=== PATIENT | male | born 1970 | race African-American/Black ===

== ENCOUNTER 2016-08-14 08:03 | Day surgery (SDC) | payer OTHER ==
[~2016-08-14 08:03] MED LIST: Lactated Ringers 1,000 ML IV PRN
[2016-08-14] MEDS ORDERED: Propofol 200 MG/20 ML SDV ONE (09:58)
[2016-08-14] MEDS ORDERED: fentaNYL 100 MCG/2 ML SDV ONE (09:58)
[2016-08-14 12:20] VITALS: BP 139/84
--- NOTE | 2016-08-14 12:50 | OR ---
PREOPERATIVE DIAGNOSIS: Dyspepsia. POSTOPERATIVE DIAGNOSIS: Significant diffuse gastritis. PROCEDURE PROPOSED: Upper gastrointestinal panendoscopy with gastric biopsies. PROCEDURE DONE: Upper gastrointestinal panendoscopy with gastric biopsies. INDICATION: This is a 46-year-old, black person with significant dyspepsia symptoms. He is presently taking Protonix 20 mg daily for the last 3 to 4 weeks with some mild improvement of symptoms. It is felt that he should be gastroscoped to rule out significant pathology. TECHNIQUE: The patient was brought to the endoscopy suite, placed in left lateral decubitus position. He was sedated with propofol per DIE MAKER. The flexible video gastroscope was then passed transorally and under visualization advanced well into the duodenum. The duodenum and duodenum bulb was unremarkable. The antrum and body of the stomach revealed diffuse gastritis with patches of redness, some prominent rugal folds. Several biopsies were taken from the antrum, mainly to rule out H. pylori. The GE junction did not reveal any significant hiatal hernia. There was no evidence of any active reflux damage. The GE junction was well demarcated without signs of Schatzki's ring or stenosis, and the remainder of the esophagus was normal as the scope was then withdrawn. The patient tolerated the procedure well. IMPRESSION: Diffuse gastritis. PLAN: I am going to increase his Protonix to twice a day 20 mg in the morning, 20 mg in the evening for a couple of months. He needs to avoid caffeine, alcohol, ibuprofen, and follow up with his PCP as needed. SCM: 08/14/2016 11:11:58 MODL: 08/14/2016 12:39:27 /[id number]
--- NOTE | 2016-08-24 13:17 | LETTER ---
08/21/2016 RE: SARANYA WILD : 1970 Dear Saranya: The biopsies taken from your stomach confirmed a chronic gastritis with some swelling and inflammatory changes. You do not have the bacteria known as H pylori in your stomach. Therefore, you do not need any special treatment for that. I am hoping that things are improving for you on the medication you are on. If you continue to have problems, you should see your family physician. Respectfully,
== END 2016-08-14 12:25 | disposition home or self-care (01) ==
LOC: VM.SDS 08:03
PROVIDERS: ATTEND Surgery
DX: K29.60 Other gastritis without bleeding (principal)
CPT/HCPCS: 43239; J2704; J3010; J7120

== ENCOUNTER 2018-10-24 07:09 | Emergency (ER) | payer OTHER ==
[2018-10-24] MEDS ORDERED: Ondansetron 4 MG/2 ML SDV IVPUSH ONE ×2 (07:35→08:52)
[2018-10-24] MEDS ORDERED: Sodium Chloride 0.9% 10 ML Syringe FLUSH PRN (07:35)
[2018-10-24] MEDS ORDERED: Sodium Chloride 0.9% 1,000 ML IV SCH (07:45)
--- NOTE | 2018-10-24 07:48 | EDM.PDOC ---
ED HPI GENERAL MEDICAL PROBLEM - General Chief Complaint: Gastrointestinal Problem Stated Complaint: ACID REFLEX Time Seen by Provider: 10/24/18 07:35 Source of Information: Reports: Patient History Limitations: Reports: No Limitations - History of Present Illness INITIAL COMMENTS - FREE TEXT/NARRATIVE: Patient comes in with complaints of nausea and vomiting that started Wednesday night. He states he tries to drink water and vomits right after. He states Wednesday was the worst of it, but also states he keeps trying to drink large glasses of water, resulting in emesis. He states he is throwing up every 15 minutes. He has had 2 episodes so far while here. Denies fever, blood in vomit , denies recent prior illness or travel. No recent contact with ill person. He states he has chronic lower back pain. No diarrhea. Denies chest pain, sob , headache. Primary doctor is Dr. Javi Mcneal. Onset Date: 10/22/18 Duration: Getting Worse, Intermittent Associated Symptoms: Reports: Nausea/Vomiting - Related Data Allergies Allergy/AdvReac Type Severity Reaction Status Date / Time No Known Allergies Allergy Verified 10/24/18 07:27 Home Meds: Home Meds . [No Known Home Meds] 10/24/18 [History] Past Medical History HEENT History: Reports: None Cardiovascular History: Reports: None Respiratory History: Reports: None Gastrointestinal History: Reports: GERD Other Genitourinary History: DYSURIA Other Musculoskeletal History: PLANTAR FASCIITIS LEFT FOOT Neurological History: Reports: None Psychiatric History: Reports: None Endocrine/Metabolic History: Reports: None Other Hematologic History: ELEVATED BLOOD URIC ACID Immunologic History: Reports: None Oncologic (Cancer) History: Reports: None Dermatologic History: Reports: None - Past Surgical History GI Surgical History: Reports: EGD Neurological Surgical History: Reports: Laminectomy, Lumbar Spine Other Musculoskeletal Surgeries/Procedures:: S/P CERVICAL SPINAL FUSION C5-6 AND C6-T1. S/P LUMBAR FUSION. PREVIOUS BACK SURGERY (SPINA BIFIDA?). LOW BACK SURGERY Social & Family History - Tobacco Use Smoking Status *Q: Unknown Ever Smoked ED ROS GENERAL - Review of Systems Review Of Systems: See Below Constitutional: Reports: No Symptoms HEENT: Reports: No Symptoms Respiratory: Reports: No Symptoms Cardiovascular: Reports: No Symptoms Endocrine: Reports: No Symptoms GI/Abdominal: Reports: Abdominal Pain (mid epigastric), Nausea, Vomiting : Reports: No Symptoms Musculoskeletal: Reports: No Symptoms Skin: Reports: No Symptoms Neurological: Reports: No Symptoms Psychiatric: Reports: No Symptoms Hematologic/Lymphatic: Reports: No Symptoms Immunologic: Reports: No Symptoms ED EXAM, GI/ABD - Physical Exam Exam: See Below Exam Limited By: No Limitations General Appearance: Alert, WD/WN, Mild Distress Eyes: Bilateral: Normal Appearance, EOMI Ears: Normal TMs Nose: Normal Inspection, Normal Mucosa, No Blood Throat/Mouth: Normal Inspection, Normal Lips, Normal Teeth, Normal Gums, Normal Oropharynx, Normal Voice, No Airway Compromise Head: Atraumatic, Normocephalic Neck: Normal Inspection, Supple, Non-Tender, Full Range of Motion Respiratory/Chest: No Respiratory Distress, Lungs Clear, Normal Breath Sounds, No Accessory Muscle Use, Chest Non-Tender Cardiovascular: Normal Peripheral Pulses, Regular Rate, Rhythm, No Edema, No Gallop, No JVD, No Murmur, No Rub GI/Abdominal Exam: Normal Bowel Sounds, Soft, Non-Tender, No Organomegaly, No Distention, No Abnormal Bruit, No Mass, Pelvis Stable Extremities: Normal Inspection, Normal Range of Motion, Non-Tender, Normal Capillary Refill, No Pedal Edema Neurological: Alert, Oriented, CN II-XII Intact, Normal Cognition, Normal Gait, Normal Reflexes, No Motor/Sensory Deficits Psychiatric: Normal Affect, Normal Mood Skin Exam: Warm, Dry, Intact, Normal Color, No Rash Lymphatic: No Adenopathy Course - Vital Signs Last Recorded V/S: Last Vital Signs Temp 36.8 C 10/24/18 07:12 Pulse 108 H 10/24/18 07:12 Resp 18 10/24/18 07:12 BP 138/94 H 10/24/18 07:12 Pulse Ox 99 10/24/18 07:12 - Orders/Labs/Meds Orders: Active Orders 24 hr Category Date Time Status AMYLASE [CHEM] Stat Lab 10/24/18 07:42 Ordered CBC WITH AUTO DIFF [HEME] Stat Lab 10/24/18 07:42 Ordered COMPREHENSIVE METABOLIC PN,CMP [CHEM] Stat Lab 10/24/18 07:42 Ordered LACTIC ACID [CHEM] Stat Lab 10/24/18 07:42 Ordered LIPASE [CHEM] Stat Lab 10/24/18 07:42 Ordered MAGNESIUM [CHEM] Stat Lab 10/24/18 07:42 Ordered Sodium Chloride 0.9% [Normal Saline] 1,000 ml Med 10/24/18 07:45 Ordered IV ASDIRECTED Sodium Chloride 0.9% [Saline Flush] Med 10/24/18 07:35 Ordered 10 ml FLUSH ASDIRECTED PRN Saline Lock Insert [OM.PC] Routine Oth 10/24/18 07:35 Ordered Medication Orders Sodium Chloride (Normal Saline) 1,000 mls @ 999 mls/hr IV ASDIRECTED MARINA Sodium Chloride (Saline Flush) 10 ml FLUSH ASDIRECTED PRN PRN Reason: Keep Vein Open Meds: Medications Generic Name Dose Route Start Last Admin Trade Name Freq PRN Reason Stop Dose Admin Sodium Chloride 1,000 mls @ 999 mls/hr 10/24/18 07:45 Normal Saline IV ASDIRECTED MARINA Sodium Chloride 10 ml 10/24/18 07:35 Saline Flush FLUSH ASDIRECTED PRN Keep Vein Open Discontinued Medications Generic Name Dose Route Start Last Admin Trade Name Freq PRN Reason Stop Dose Admin Ondansetron HCl 4 mg 10/24/18 07:35 Zofran IVPUSH 10/24/18 07:36 ONETIME ONE - Radiology Interpretation Free Text/Narrative:: CT of abdomen shows enterocolitis w/o complication, fatty liver Departure - Departure Time of Disposition: 10:00 Disposition: Home, Self-Care 01 Condition: Good Clinical Impression: Enterocolitis - Discharge Information *PRESCRIPTION DRUG MONITORING PROGRAM REVIEWED*: Not Applicable *COPY OF PRESCRIPTION DRUG MONITORING REPORT IN PATIENT LAUREL: Not Applicable Instructions: Colitis, Fatty Liver Referrals: PCP,None [Ordering Only Provider] - Additional Instructions: Plan 1. Take zofran for nausea. Start with sips of water, not an entire glass. Do try to stay hydrated. 2. May have nausea/vomiting for another 1-2 days. Follow up in clinic with Dr. Mcneal 3. Try to eat a bland diet with little spices when you are able to start eating without vomiting. 4. You do have what is called enterocolitis which is inflammation of the colon, likely caused by a viral disease. The CT also showed some evidence of a fatty liver. I have provided information on this. Reducing the amount of alcohol in your diet will help. 5. Please call if you have any further questions or concerns. - Problem List & Annotations (1) Enterocolitis SNOMED Code(s): 24122918 Code(s): K52.9 - NONINFECTIVE GASTROENTERITIS AND COLITIS, UNSPECIFIED Status: Acute Priority: Medium Current Visit: Yes - Problem List Review Problem List Initiated/Reviewed/Updated: Yes - My Orders Last 24 Hours: My Active Orders 10/24/18 07:35 Sodium Chloride 0.9% [Saline Flush] 10 ml FLUSH ASDIRECTED PRN Saline Lock Insert [OM.PC] Routine 10/24/18 07:42 AMYLASE [CHEM] Stat CBC WITH AUTO DIFF [HEME] Stat COMPREHENSIVE METABOLIC PN,CMP [CHEM] Stat LACTIC ACID [CHEM] Stat LIPASE [CHEM] Stat MAGNESIUM [CHEM] Stat 10/24/18 07:45 Sodium Chloride 0.9% [Normal Saline] 1,000 ml IV ASDIRECTED - Assessment/Plan Last 24 Hours: My Active Orders 10/24/18 07:35 Sodium Chloride 0.9% [Saline Flush] 10 ml FLUSH ASDIRECTED PRN Saline Lock Insert [OM.PC] Routine 10/24/18 07:42 AMYLASE [CHEM] Stat CBC WITH AUTO DIFF [HEME] Stat COMPREHENSIVE METABOLIC PN,CMP [CHEM] Stat LACTIC ACID [CHEM] Stat LIPASE [CHEM] Stat MAGNESIUM [CHEM] Stat 10/24/18 07:45 Sodium Chloride 0.9% [Normal Saline] 1,000 ml IV ASDIRECTED Assessment:: enterocolitis Plan: Plan 1. Take zofran for nausea. Start with sips of water, not an entire glass. Do try to stay hydrated. 2. May have nausea/vomiting for another 1-2 days. Follow up in clinic with Dr. Mcneal 3. Try to eat a bland diet with little spices when you are able to start eating without vomiting. 4. You do have what is called enterocolitis which is inflammation of the colon, likely caused by a viral disease. The CT also showed some evidence of a fatty liver. I have provided information on this. Reducing the amount of alcohol in your diet will help. 5. Please call if you have any further questions or concerns.
[2018-10-24 08:24] LABS: ANION GAP 35.6 mmol/L (10-20); CHLORIDE,CL 98 mmol/L (98-107); SODIUM,NA 143 mmol/L (136-145)
[2018-10-24] MEDS ORDERED: Lactated Ringers 1,000 ML IV SCH (08:45)
[2018-10-24] MEDS ORDERED: Iopamidol 612 MG/ML 100 ML Bottle IVPUSH ONE (08:55)
[2018-10-24] MEDS ORDERED: Piperacillin/Tazobactam 3.375 GM in Sodium Chloride 0.9% 100 ML IV ONE (08:55)
[2018-10-24 08:57] VITALS: BP 116/71
--- NOTE | 2018-10-24 09:38 | CT ---
[id number] CT/CT Abdomen Pelvis W IV EXAM: ABDOMEN AND PELVIS CT WITH CONTRAST INDICATION: Nausea, vomiting and elevated liver function tests. COMPARISON: None. DISCUSSION: Mild to moderate wall thickening and mild surrounding inflammatory changes in the cecum to the proximal descending colon. Mild wall thickening and mesenteric edema involving multiple small bowel loops. Findings are compatible with enterocolitis which could be infectious or inflammatory. Fatty infiltration of the liver. There are scattered colonic diverticula. Mildly prominent rectal stool volume. Mild apparent bladder wall thickening likely relates to incomplete distention, but is nonspecific. The pancreas, spleen, adrenal glands, gallbladder, kidneys and appendix are normal in appearance. No adenopathy, free air free fluid. Posterior fusion and decompression L3-S1. Anterior fusion L4-L5 and L5-S1. IMPRESSION: 1. Enterocolitis without CT evident complication. 2. Fatty liver. Zhang Menjivar MD 10/24/18 0937 Thank you for allowing us to participate in the care of your patient.
[2018-10-24] MEDS ORDERED: Take Home: Ondansetron 4 MG Tab.DIS, 2 Tab Pack PO ONE (09:55)
== END 2018-10-24 10:07 | disposition home or self-care (01) ==
LOC: VM.ED 07:09
DX: K52.9 Noninfective gastroenteritis and colitis, unspecified (principal)
CPT/HCPCS: 36415; 74177; 80053; 81001; 82150; 83605; 83690; 83735; 85025; 87040; 96361; 96365; 96375; 96376; 99284-25; A9270-GY; J2405; J2543; J7030; J7050; J7120; Q9967

== ENCOUNTER 2020-02-01 05:50 | Emergency (ER) | payer OTHER ==
[2020-02-01] MEDS ORDERED: Oxymetazoline 0.05% Nasal Spray 30 ML Bottle NAS ONE (05:58)
--- NOTE | 2020-02-01 06:16 | EDM.PDOC ---
ED HPI GENERAL MEDICAL PROBLEM - General Source of Information: Reports: Patient <Faye Saha - Last Filed: 02/01/20 07:02> <BennyKennye - Last Filed: 02/01/20 07:38> - General Chief Complaint: ENT Problem Stated Complaint: Nose bleed Time Seen by Provider: 02/01/20 05:57 - History of Present Illness INITIAL COMMENTS - FREE TEXT/NARRATIVE: Miles is a 49 y/o male who presents to the ER with a bloody nose. He report that the bloody nose started yesterday afternoon when he was at work and has continued on and off. Through night it started again about 0300 and would not stop. He has only reported bleeding from the left nare. He denies any bleeding disorders, no aspirin or blood thinners. He does report that his father has a bleeding disorder of some type, but he does not know what it is. (AyushFaye herrera) - Related Data Allergies Allergy/AdvReac Type Severity Reaction Status Date / Time No Known Allergies Allergy Verified 10/24/18 07:27 Home Meds: Home Meds . [No Known Home Meds] 10/24/18 [History] Past Medical History HEENT History: Reports: None Cardiovascular History: Reports: None Respiratory History: Reports: None Gastrointestinal History: Reports: GERD Other Genitourinary History: DYSURIA Other Musculoskeletal History: PLANTAR FASCIITIS LEFT FOOT Neurological History: Reports: None Psychiatric History: Reports: None Endocrine/Metabolic History: Reports: None Other Hematologic History: ELEVATED BLOOD URIC ACID Immunologic History: Reports: None Oncologic (Cancer) History: Reports: None Dermatologic History: Reports: None - Past Surgical History GI Surgical History: Reports: EGD Neurological Surgical History: Reports: Laminectomy, Lumbar Spine Other Musculoskeletal Surgeries/Procedures:: S/P CERVICAL SPINAL FUSION C5-6 AND C6-T1. S/P LUMBAR FUSION. PREVIOUS BACK SURGERY (SPINA BIFIDA?). LOW BACK SURGERY <Faye Saha - Last Filed: 02/01/20 07:02> Social & Family History - Family History Hematologic: Reports: Bleeding Disorder (father-unsure type) <Faye Saha - Last Filed: 02/01/20 07:02> Review of Systems - Review of Systems Review Of Systems: See Below Constitutional: Reports: No Symptoms Eyes: Reports: No Symptoms Ears: Reports: No Symptoms Nose: Reports: Epistaxis (left sided) Mouth/Throat: Reports: No Symptoms Respiratory: Reports: No Symptoms Cardiovascular: Reports: No Symptoms GI/Abdominal: Reports: No Symptoms Genitourinary: Reports: No Symptoms Musculoskeletal: Reports: No Symptoms Skin: Reports: No Symptoms Neurological: Reports: No Symptoms Psychiatric: Reports: No Symptoms <Faye Saha - Last Filed: 02/01/20 07:02> ED EXAM, GENERAL - Physical Exam Exam: See Below Exam Limited By: No Limitations General Appearance: Alert, WD/WN, No Apparent Distress (adult male, NAD. He is holding a tshirt over his nose to catch the bleeding.) Ears: Hearing Grossly Normal Nose: Other (note bleeding from left nare, small clots noted from nare. ) Throat/Mouth: Normal Teeth, Normal Oropharynx, Normal Voice, Other (note small amount of blood in the posterior pharynx, does not appear to be atiuvely) Neck: Normal Inspection, Supple Respiratory/Chest: No Respiratory Distress Cardiovascular: Regular Rate, Rhythm GI/Abdominal: Soft, Non-Tender (Male) Exam: Deferred Rectal (Males) Exam: Deferred Extremities: Normal Inspection, Normal Range of Motion, Normal Capillary Refill Neurological: Alert, Oriented, CN II-XII Intact, Normal Cognition, Abnormal Gait (walks with a cane) Psychiatric: Normal Affect, Normal Mood Skin Exam: Warm, Dry, Intact, Normal Color Lymphatic: No Adenopathy <Faye Saha - Last Filed: 02/01/20 07:02> Course <Faye Saha - Last Filed: 02/01/20 07:02> <Lakia Zapata - Last Filed: 02/01/20 07:38> - Vital Signs Text/Narrative:: 0557 The patient was seen by the ACCOUNTS MANAGER. Labs ordered. A Nasal rocket was placed in the left nare after it was soaked in Afrin. Patient not tolerating the nasal rocket well at first, but encouraged to leave it in. Note BP elevated. 0610 BP remains up. Metoprolol 25mg po given. 0655 Patient unable to tolerate the nasal rocket and requests ACCOUNTS MANAGER remove it. Nasal rocket removed. No active bleeding noted now. Will observe and moitor for bleeding and recheck BP. 0700 Report given to Lakia Ceron, [place]. (Faye Saha) Last Recorded V/S: Last Vital Signs Temp Pulse 78 02/01/20 06:35 Resp BP 158/113 H 02/01/20 06:35 Pulse Ox - Orders/Labs/Meds Labs: Laboratory Tests 02/01/20 02/01/20 02/01/20 Range/Units 06:19 06:19 06:19 WBC 3.8 L (4.0-10.0) x10^3/uL RBC 5.02 (4.5-6.0) x10^6/uL Hgb 13.8 L (14.0-18.0) g/dL Hct 40.3 (40.0-52.0) % MCV 80.3 D (78.0-93.0) fL MCH 27.5 (26.0-32.0) pg MCHC 34.2 (32.0-36.0) g/dL RDW Coeff of Dorian 13.1 (10.0-15.0) % Plt Count 188 (130-400) x10^3/uL Neut % (Auto) 47.8 L (50.0-80.0) % Lymph % (Auto) 43.3 (25.0-50.0) % Atlantic % (Auto) 7.1 (2.0-11.0) % Eos % (Auto) 1.3 (0.0-4.0) % Baso % (Auto) 0.5 (0.2-1.2) % PT 10.5 (9.5-12.3) SEC INR 1.0 L (2.0-3.5) APTT 26.3 (25.6-32.8) SEC Sodium 139 (136-145) mmol/L Potassium 3.6 (3.5-5.1) mmol/L Chloride 102 (98-107) mmol/L Carbon Dioxide 25 D (21-32) mmol/L Anion Gap 15.6 (10-20) mmol/L BUN 17 (7-18) mg/dL Creatinine 1.0 (0.70-1.30) mg/dL Est Cr Clr Drug Dosing TNP Estimated GFR (MDRD) > 60 Glucose 127 H (74-106) mg/dL Calcium 8.8 (8.5-10.1) mg/dL Meds: Medications Discontinued Medications Generic Name Dose Route Start Last Admin Trade Name Sylvain PRJjoo Reason Stop Dose Admin Metoprolol Tartrate 25 mg 02/01/20 06:19 02/01/20 06:35 Lopressor PO 02/01/20 06:20 25 mg NOW STA Administration Oxymetazoline HCl 1 ml 02/01/20 05:58 Nasal Decongestant [place] ELIANE 02/01/20 05:59 ONETIME ONE - Re-Assessments/Exams Free Text/Narrative Re-Assessment/Exam: 02/01/20 07:35 Patient states he feels much better and would like to be discharged. Did discuss at great lengths his blood pressure remains elevated and we should continue to monitor. Patient is not willing to stay any longer for he needs to get to work. Did discuss the risk of elevated untreated blood pressure. Patient acknowledges risk and is willing to assume the risk. He did states he will return or call 911 if any issue arise. (Lakia Zapata) Departure - Departure Condition: Good, Serious <Faye Saha Marie - Last Filed: 02/01/20 07:02> - Departure Time of Disposition: 07:40 - Discharge Information *PRESCRIPTION DRUG MONITORING PROGRAM REVIEWED*: Not Applicable *COPY OF PRESCRIPTION DRUG MONITORING REPORT IN PATIENT LAUREL: Not Applicable <Lakia Zapata - Last Filed: 02/01/20 07:38> - Departure Disposition: Home, Self-Care 01 Clinical Impression: Epistaxis, Elevated blood-pressure reading without diagnosis of hypertension - Discharge Information Instructions: Nosebleed, Adult, Hypertension, Adult Referrals: Satish Mcneal MD [Primary Care Provider] - Forms: ED Department Discharge Additional Instructions: 1. rest 2. increase your water intake 3. Continue all at home medications 4. Activity and diet as tolerated 5. Can take over the counter Tylenol for any pain or discomfort 6. Follow up with PCP if symptoms continue, return, or progress 7. Call with any questions or concerns 8. Use pressure over the bridge of the nasal bone for a minimum of 15 minutes firm pressure if nose bleed occurs again. Make sure you are bending forward to reduce the amount of blood being swallowed causing GI upset. 9. Your blood pressure remains high and needs to be evaluated /monitored closely. Please follow up in the clinic on Wednesday for re-evaluation. Return to the ER if you become dizzy, lightheaded, vision changes, headache, confusion, bleeding, chest pain, shortness of breath, or if blood pressure remains elevated. Sepsis Event Note (ED) - Focused Exam Vital Signs: Vital Signs Pulse BP 02/01/20 06:35 78 158/113 H <Lakia Zapata - Last Filed: 02/01/20 07:38> - Assessment/Plan Assessment:: 1. Epistaxis (Lakia Zapata) Plan: 1. Previous provider placed a rhino rocket and gave Metoprol for elevated BP. Bleeding was controlled however patient did not tolerate rhino rocket. Previous provider removed. Patient remained in the ER for further bleeding observation 2. Patient and nursing staff was updated regarding the plan of care 3. Education provided the patient regarding activity, diet, rest, [id number] medication modalities, and follow-up care was provided 4. Patient and family are agreeable to the above plan of care 5. All questions and concerns were addressed with the patient and family prior to discharge (Lakia Zapata)
[2020-02-01] MEDS ORDERED: Metoprolol Tartrate 25 MG Tab PO STA (06:19)
[2020-02-01 06:39] LABS: CHLORIDE,CL 102 mmol/L (98-107); SODIUM,NA 139 mmol/L (136-145)
[2020-02-01 06:40] LABS: ANION GAP 15.6 mmol/L (10-20)
[2020-02-01 06:48] LABS: PTT,PARTIAL THROMBOPLSTIN TIME 26.3 SEC (25.6-32.8)
[2020-02-01 07:53] VITALS: BP 161/122
[2020-02-01 07:54] VITALS: PULSE 80
== END 2020-02-01 07:42 | disposition home or self-care (01) ==
LOC: VM.ED 05:50
DX: R04.0 Epistaxis (principal); R03.0 Elevated blood-pressure reading, without diagnosis of hypertension
CPT/HCPCS: 30901; 30903; 36415; 80048; 85025; 85610; 85730; 99283-25; 99284; A9270-GY

== ENCOUNTER 2022-05-14 05:55 | Emergency (ER) | payer OTHER ==
[2022-05-14] MEDS ORDERED: Orphenadrine 60 MG/2 ML Inj IM ONE (06:28)
[2022-05-14] MEDS ORDERED: Ketorolac 30 MG/ML SDV IVPUSH ONE (06:28)
[2022-05-14 07:13] LABS: CHLORIDE,CL 94 mmol/L (98-107); SODIUM,NA 136 mmol/L (136-145)
[2022-05-14 07:18] LABS: ANION GAP 17.2 mmol/L (5-15); ESTIMATED GFR 52 mL/min (>=60)
[2022-05-14] MEDS ORDERED: Lactated Ringers 1,000 ML IV ONE (07:28)
[2022-05-14] MEDS: Ketamine 200 MG/20 ML MDV IVPUSH ONE ×2 (07:48→08:34)
[2022-05-14] MEDS ORDERED: Acetaminophen/HYDROcodone 325-5 MG Tab PO ONE (08:48)
[2022-05-14] MEDS ORDERED: methylPREDNISolone Sodium Succinate 125 MG/2 ML SDV IV ONE (08:50)
[2022-05-14] MEDS ORDERED: Ketamine 200 MG/20 ML MDV IVPUSH ONE (09:11)
[2022-05-14 09:22] VITALS: BP 127/83; PULSE 83
== END 2022-05-14 10:25 | disposition home or self-care (01) ==
LOC: VM.ED 05:55
DX: M54.50 Low back pain, unspecified (principal); E86.0 Dehydration; K21.9 Gastro-esophageal reflux disease without esophagitis; Z79.899 Other long term (current) drug therapy
CPT/HCPCS: 36415; 80053; 82550; 84550; 85025; 85652; 86038; 86140; 86200; 86431; 96361; 96372; 96374; 96375; 96376; 99284; 99284-25; A9270-GY; J1885; J2360; J2930; J7120

== ENCOUNTER 2023-08-08 13:48 | Emergency (ER) | payer OTHER ==
[2023-08-08 14:12] VITALS: BP 130/69; PULSE 100
[2023-08-08] MEDS: predniSONE 20 MG Tab PO ONE (14:25)
[2023-08-08] MEDS: Colchicine 0.6 MG Tab PO ONE (14:25)
[2023-08-08] MEDS: Take Home: Acetaminophen/Codeine 300 MG/30 MG, 5 Tab Pack PO ONE (14:25)
[2023-08-08] MEDS: Ketorolac 30 MG/ML SDV IM ONE (14:31)
[2023-08-09] MEDS ORDERED: predniSONE 20 MG Tab PO ONE (14:11)
== END 2023-08-08 14:46 | disposition home or self-care (01) ==
LOC: VM.ED 13:48
DX: M10.9 Gout, unspecified (principal)
CPT/HCPCS: 96372; 99283; A9270-GY; J1885; J7512

== ENCOUNTER 2024-11-06 20:40 | Emergency (ER) | payer OTHER ==
[2024-11-06 21:28] VITALS: BP 136/88; PULSE 129
== END 2024-11-06 21:41 | disposition home or self-care (01) ==
LOC: VM.ED 20:40
DX: M54.2 Cervicalgia (principal); M54.50 Low back pain, unspecified; M79.604 Pain in right leg; M79.605 Pain in left leg; V43.52XA Car driver injured in collision with other type car in traffic accident, initial encounter; Y92.009 Unspecified place in unspecified non-institutional (private) residence as the place of occurrence of the external cause
CPT/HCPCS: 99283; 99284